=== PATIENT | female | born 1980 | race African-American/Black ===

== ENCOUNTER 2021-03-13 02:55 | Emergency (ER) | payer MEDICAID ==
[~2021-03-13] VITALS: Ht 149.9 cm; Wt 61.2 kg
[2021-03-13 02:59] VITALS: BP 151/90
--- NOTE | 2021-03-13 03:00 | NUR ---
TO BED VIA WHEELCHAIR
--- NOTE | 2021-03-13 03:11 | NUR ---
Dr. Pearson examining patient.
[2021-03-13] MEDS ORDERED: MORPHINE SULFATE 4 MG/ML SYR IVP STA (03:13)
[2021-03-13] MEDS ORDERED: NACL 0.9% 1,000 ML IV STA (03:13)
[2021-03-13 03:28] LABS: BASOPHILS % (AUTO) 0.4 % (0.0-2.0); EOSINOPHILS # (AUTO) 0.1 K/uL (0-0.4); EOSINOPHILS % (AUTO) 1.1 % (0.0-4.0); HEMATOCRIT 35.2 % (36-48); HEMOGLOBIN 11.3 g/dL (12.0-16.0); LYMPHOCYTES # (AUTO) 2.7 K/uL (2.5-16.5); LYMPHOCYTES % (AUTO) 27.5 % (20.5-51.1); MEAN CORPUSCULAR HEMOGLOBIN 23 pg (27-31); MEAN CORPUSCULAR HGB CONC 32 g/dL (33-37); MEAN CORPUSCULAR VOLUME 71.2 fL (80-94); MONOCYTES # (AUTO) 0.5 K/uL (0.8-1.0); NEUTROPHILS # (AUTO) 6.5 K/uL (1.8-7.7); PLATELET COUNT (AUTO) 288 K/uL (140-450); RED BLOOD CELL COUNT(AUTO) 4.94 MIL/uL (4.20-5.40); RED CELL DISTRIBUTION WIDTH 14.9 % (11.6-13.7); WHITE BLOOD COUNT (AUTO) 9.8 K/uL (4.8-10.8)
--- NOTE | 2021-03-13 03:42 | NUR ---
41 YO/F BIB SELF W C/O R LOWER ABDOMINAL PAIN AND R FLANK PAIN X1 DAY WORSENING YESTEDAY AT 2000 CONSTANT THROBBING W EPISODES OF "SHARP BURSTS." PT ALSO REPORTS X2 EPISODES OF VOMIT, NO BLOOD IN VOMIT. PATIENT DENIES ANY FEVER, N/D. PATIENT REPORT URINARY FREQUENCY, DENIES ANY OTHER URINARY PROBLEMS. BOWEL SOUNDS PRESENT, ABDOMEN SOFT NON-TENDER. PT REPORTS TAKING NAPROXEN (UNKNOWN DOSAGE) AT 2200. PATIENT LAYING IN BED LOCKED IN LOWEST POSITION W X1 SIDERAIL UP. BREATHING EVEN AND UNLABORED. VSS. NAD NOTED, WILL CONTINUE TO MONITOR. PMH: 3 C-SECTIONS, UTERINE FIBROIDS REMOVAL, GALL BLADDER REMOVAL ALLERGIES: IODINE, SULFA, ERYTHROMYCIN
[2021-03-13 03:52] LABS: ALBUMIN 4.2 g/dL (3.4-5.0); ANION GAP 15.6 (8-16); CARBON DIOXIDE 22.3 mmol/L (21-32); CREATININE 0.7 mg/dL (0.6-1.3); POTASSIUM 3.9 mmol/L (3.5-5.1); TOTAL BILIRUBIN 0.3 mg/dL (0.0-1.0)
[2021-03-13] MEDS ORDERED: diphenhydrAMINE 50 MG/ML VIAL IVP ONE (04:15)
--- NOTE | 2021-03-13 04:36 | NUR ---
PT RETURNED FROM CT. RE-CONNECTED TO MONITOR. PT REPORTS ITCHING, BENADRYL ADMNISTERED. DENIES SOB. NAD NOTED, WILL CONTINUE TO MONITOR.
--- NOTE | 2021-03-13 05:27 | NUR ---
PATIENT REPORT PAIN IS GONE AND FEELS BETTER. VSS
[2021-03-13] MEDS ORDERED: DOXYCYCLINE 100 MG CAP PO STA (05:29)
[2021-03-13] MEDS ORDERED: cefTRIAXone 500 MG in LIDOCAINE MPF 1% 1 ML IM ONE (05:30)
--- NOTE | 2021-03-13 05:32 | NUR ---
Female Boiler Operator Helper accompanied female patient for Pelvic Exam.
[2021-03-13] MEDS ORDERED: cefTRIAXone 500 MG VIAL ONE (05:47)
[2021-03-13] MEDS ORDERED: LIDOCAINE MPF 1% 5 ML ONE (05:48)
--- NOTE | 2021-03-13 06:43 | NUR ---
Dr. Talamantes examining patient.
[2021-03-13] MEDS ORDERED: ONDANSETRON 4 MG/2 ML VIAL IVP ONE (06:50)
--- NOTE | 2021-03-13 06:53 | NUR ---
Ultrasound at bedside.
[2021-03-13 06:58] LABS: APPEARANCE,URINE CLEAR (CLEAR); BILIRUBIN,URINE NEGATIVE (NEGATIVE); BLOOD, URINE TRACE-I (NEGATIVE); COLOR,URINE YELLOW (YELLOW); LEUKOCYTE ESTERASE ,URINE NEGATIVE (NEGATIVE); NITRITE, URINE NEGATIVE (NEGATIVE); UGLUCOSE NEGATIVE (NEGATIVE)
--- NOTE | 2021-03-13 07:10 | NUR ---
pt presents aox4, gcs15. cc: rlq abd pain, 4/10 right now tolerble, pending us results. no distress. no nvd. denies blood in urine/stool/vag bleed. pt on cell phone laughing/conversating.
--- NOTE | 2021-03-13 07:12 | NUR ---
Pt report given to DARIUSZ CASANOVA. Transfer of PT care at this time.
[2021-03-13 07:18] LABS: RBC,URINE 0-5 /HPF (0-5); WBC,URINE 0-5 /HPF (0-5)
[2021-03-13 07:53] VITALS: BP 127/67
[2021-03-13] MEDS ORDERED: METR500T1 PO (08:56)
[2021-03-13] MEDS ORDERED: DOXY-690 PO (08:56)
[2021-03-13] MEDS ORDERED: ACET-8386 PO (08:56)
[2021-03-13] MEDS ORDERED: NAPR-54 PO (08:56)
--- NOTE | 2021-03-13 09:20 | NUR ---
Patient discharged with v/s stable. Written and verbal after care instructions given and explained. Patient alert, oriented and verbalized understanding of instructions. Ambulatory with steady gait. All questions addressed prior to discharge. ID band removed. Patient advised to follow up with PMD. Rx of norco, flagyl,naprosyn, vibramycin given. Patient educated on indication of medication including possible reaction and side effects. Opportunity to ask questions provided and answered.
[2021-03-13] MEDS ORDERED: TRAM50TA1 PO ×2 (19:10→19:12)
[2021-03-13] MEDS ORDERED: ONDA-24 SL (19:13)
[2021-03-14] MEDS ORDERED: POLY17PD46 PO (12:31)
[2021-03-14] MEDS ORDERED: METO10TA10 PO (12:31)
[2021-03-14] MEDS ORDERED: SIME80TA22 PO (12:31)
[2021-03-14] MEDS ORDERED: PERI PO (12:31)
[2021-03-14] MEDS ORDERED: ACET-1182 PO (12:31)
== END 2021-03-13 09:20 | disposition home or self-care (01) ==
LOC: MED 02:55
DX: R10.2 Pelvic and perineal pain (principal); R11.10 Vomiting, unspecified; Z90.49 Acquired absence of other specified parts of digestive tract
CPT/HCPCS: 36415; 74177; 76830; 80053; 81001; 81025; 83690; 85025; 87210; 96361; 96372; 96374; 96375; 99285; J0696; J1200; J2001; J2270; J2405; Q0092; Q9967; 87491

== ENCOUNTER 2021-03-13 17:35 | Emergency (ER) | payer MEDICAID ==
[~2021-03-13 17:35] MED LIST: ACET-8386 PO; DOXY-690 PO; METR500T1 PO; NAPR-54 PO
--- NOTE | 2021-03-13 17:54 | NUR ---
PT WAS TAKEN BACK TO TRIAGE ROOM. ASKED PT TO KEEP ARM STILL FOR BLOOD PRESSURE, PT STATED "I WILL JUST GO SOMEWHERE ELSE, YOU GUYS DONT KNOW HOW TO DEAL WITH PEOPLE." PT WALKED FROM WHEELCHAIR AND THREW EMESIS BAG ON FLOOR. LWBS AT THIS TIME.
[2021-03-13] MEDS ORDERED: TRAM50TA1 PO ×2 (19:10→19:12)
[2021-03-13] MEDS ORDERED: ONDA-24 SL (19:13)
[2021-03-14] MEDS ORDERED: METO10TA10 PO (12:31)
[2021-03-14] MEDS ORDERED: SIME80TA22 PO (12:31)
[2021-03-14] MEDS ORDERED: ACET-1182 PO (12:31)
[2021-03-14] MEDS ORDERED: PERI PO (12:31)
[2021-03-14] MEDS ORDERED: POLY17PD46 PO (12:31)
== END 2021-03-13 17:54 | disposition left against medical advice (07) ==
LOC: MED 17:35
DX: Z53.21 Procedure and treatment not carried out due to patient leaving prior to being seen by health care provider (principal)

== ENCOUNTER 2021-03-13 18:25 | Observation (INO) | payer MEDICAID, SELFPAY ==
[~2021-03-13] VITALS: Ht 149.9 cm; Wt 61.2 kg
[2021-03-13 18:44] VITALS: BP 168/78
--- NOTE | 2021-03-13 18:50 | NUR ---
Patient ambulated to bed 05 with steady/even gait.
--- NOTE | 2021-03-13 18:50 | NUR ---
41 Y/O F BIB MOTHER FROM HOME, PT WAS HERE EARLIER AND IS HERE FOR SAME C/O. STATES SHE IS HAVING INTENSE BACK PAIN THAT RADIATES FROM R LOWER SIDE TO LOWER BACK 10/10 SHARP/CONSTANT. PT ALSO REPORTS CHILLS, URINARY FREQUENCY, AND C/O N&V X 4 EPISODES '"CLEAR" TODAY. PATIENT DENIES DYSURIA, CHEST PAIN, ABDOMINAL PAIN. ABD SOFT/NON-TENDER. DENIES SICK HOUSEHOLD MEMBERS. STATES EARLIER WAS DISCHARGED WITH NAPROXEN WITHOUT RELIEF; STATES LAST DOSE NAPROXEN 2 HOURS AGO. BED LOCKED IN LOWEST POSITION, SIDE RAILS X 1, CALL LIGHT IN REACH. LMP: 2020. PMH: 3 C-SECTIONS, UTERINE FIBROIDS REMOVAL, GALL BLADDER REMOVAL ALLERGY: IODINE, ERYTHROMYCIN, SULFA MED: DENIES
[2021-03-13] MEDS ORDERED: KETOROLAC 30 MG/ML VIAL IVP ONE (18:55)
[2021-03-13] MEDS ORDERED: NACL 0.9% 1,000 ML IV ONE (18:55)
--- NOTE | 2021-03-13 19:07 | NUR ---
Dr. Berry is evaluating patient at bedside
--- NOTE | 2021-03-13 19:07 | NUR ---
Dr. Berry states to hold CT, IV, UA +give Toradol IM.
[2021-03-13] MEDS ORDERED: TRAM50TA1 PO ×2 (19:10→19:12)
--- NOTE | 2021-03-13 19:10 | NUR ---
Report and transfer of care given to DARIUSZ Benson
--- NOTE | 2021-03-13 19:10 | NUR ---
REPORT RECEIVED FROM DARIUSZ CALIXTO FOR CONTINUITY OF PT CARE AT THIS TIME.
[2021-03-13] MEDS ORDERED: ONDA-24 SL (19:13)
--- NOTE | 2021-03-13 19:50 | NUR ---
PT LAYING IN BED LOCKED IN LOWEST POSITION W X1 SIDERAIL UP. PT REPORTS PAIN SLIGHTLY IMPROVED TO 5/10. VSS. BREATHING EVEN AND UNLABORED. NAD NOTED, WILL CONTINUE TO MONITOR. ERMD AT BEDSIDE FOR CONTINUITY OF PT CARE.
--- NOTE | 2021-03-13 20:26 | NUR ---
PER DR. LAURIE TORRES. TO CANCEL CT, LABS, UA, ONLY INSERT IV FOR PAIN MEDICATIONS.
--- NOTE | 2021-03-13 20:30 | NUR ---
SULMA SAMPLE COLLECTED FROM PT NARES AND HANDED TO MANAGER RESOURCE.
--- NOTE | 2021-03-13 21:35 | NUR ---
PT AMBULATED TO BATHROOM W STEADY GAIT.
--- NOTE | 2021-03-13 21:42 | NUR ---
PT REPORTING 7/10 TEMPORAL HEADACHE W LIGHT SENSITIVITY AND 8/10 PELVIC PAIN. ERMD MADE AWARE.
[2021-03-13] MEDS ORDERED: MORPHINE SULFATE 4 MG/ML SYR IVP ONE (21:50)
--- NOTE | 2021-03-13 22:14 | NUR ---
PROVIDED PT W CRACKERS AND APPLE JUICE.
[2021-03-13] MEDS ORDERED: ONDANSETRON 4 MG/2 ML VIAL IVP PRN (23:00)
[2021-03-13] MEDS ORDERED: POTASSIUM CHLORIDE 10 MEQ TABER PO PRN (23:00)
[2021-03-13] MEDS ORDERED: ACETAMINOPHEN 325 MG TAB PO PRN (23:00)
[2021-03-13] MEDS ORDERED: KCL 20 MEQ/WATER INJ PREMIX 200 ML IV PRN (23:00)
[2021-03-13] MEDS ORDERED: MAGNESIUM OXIDE 400 MG TAB PO PRN (23:00)
[2021-03-13] MEDS ORDERED: MAG SULF 2000 MG/WATER PREMIX 50 ML IV PRN (23:00)
[2021-03-13] MEDS ORDERED: HYDROcodone/APAP 5/325 MG 1 TAB TAB PO PRN (23:00)
[2021-03-13] MEDS ORDERED: IBUPROFEN 400 MG TAB PO PRN (23:00)
[2021-03-13] MEDS ORDERED: MORPHINE SULFATE 2 MG/ML SYR IVP PRN (23:05)
--- NOTE | 2021-03-13 23:35 | NUR ---
CALLED REPORT TO DARIUSZ LITTLEJOHN FOR TRANSFER OF PT CARE. PER DARIUSZ LITTLEJOHN UNAVAILABLE TO TAKE REPORT AT THIS TIME AND WILL CALL ME BACK . UNKNOWN TIME OF CALL BACK FOR REPORT.
--- NOTE | 2021-03-14 00:10 | NUR ---
PT APPEARS TO BE RESTING W EYES CLOSED, SUPINE. BREATHING EVEN AND UNLABORED. NAD NOTED, WILL CONTINUE TO MONITOR. VSS ON MONITOR.
--- NOTE | 2021-03-14 00:20 | NUR ---
CALLED [phone] FOR REPORT, NO ANSWER. WILL TRY AGAIN.
--- NOTE | 2021-03-14 00:31 | NUR ---
REPORT CALLED TO DARIUSZ LITTLEJOHN FOR TRANSFER OF PT CARE AT THIS TIME.
--- NOTE | 2021-03-14 00:34 | NUR ---
CALLED ED AND RECEIVED REPORT FROM ANGELICA ARZOLA. WILL AWAIT PATIENT ARRIVAL.
--- NOTE | 2021-03-14 00:46 | NUR ---
Patient will be admitted to care of . Admited to MED/SURG. Will go to room 119-B. Belongings list completed. Report to DARIUSZ LITTLEJOHN.
--- NOTE | 2021-03-14 01:00 | NUR ---
RECEIVED REPORT AND PT FROM ED ANGELICA ARZOLA FOR ADMIT TO [facility] ROOM 119B. PT ARRIVED AAOX4. NO APPARENT S/S OF ACUTE DISTRESS. BREATHING EVEN AND UNLABORED ON RA WITH O2 SAT OF 99%. NO C/O CP OR SOB. R AC 20G IVL, INTACT/PATENT. POC AND WHITE COMMUNICATION BOARD UPDATED. BED IN LOW/LOCKED POSITION. CALL LIGHT WITHIN REACH. PT ENCOURAGED TO CALL FOR ANY NEEDS/ASSISTANCE. WILL CONTINUE TO MONITOR.
[2021-03-14 01:26] VITALS: BP 122/71
[2021-03-14 04:00] VITALS: BP 122/76
--- NOTE | 2021-03-14 07:18 | NUR ---
REPORT GIVEN TO NERISSA ARZOLA FOR CONTINUITY OF CARE. PT SITTING UP AAOX4. NO APPARENT S/S OF ACUTE DISTRESS. BREATHING EVEN AND UNLABORED. BED IN LOW/LOCKED POSITION. CALL LIGHT WITHIN REACH. ALL NEEDS MET AT THIS TIME.
--- NOTE | 2021-03-14 07:20 | NUR ---
RECEIVED REPORT FROM TRANSPORT CONDUCTOR NURSE FOR CONTINUITY OF CARE. PATIENT STABLE. NO S/S OF DISTRESS. BREATHING SYMMETRICAL. IV INTACT, DRY, SALINE LOCKED. CALL LIGHT IN REACH. ALL SAFETY MEASURES IN PLACE.
[2021-03-14 07:31] LABS: BASOPHILS % (AUTO) 0.3 % (0.0-2.0); EOSINOPHILS # (AUTO) 0.1 K/uL (0-0.4); EOSINOPHILS % (AUTO) 1.1 % (0.0-4.0); HEMATOCRIT 32.2 % (36-48); HEMOGLOBIN 10.3 g/dL (12.0-16.0); LYMPHOCYTES # (AUTO) 2.6 K/uL (2.5-16.5); LYMPHOCYTES % (AUTO) 32.1 % (20.5-51.1); MEAN CORPUSCULAR HEMOGLOBIN 23 pg (27-31); MEAN CORPUSCULAR HGB CONC 32 g/dL (33-37); MEAN CORPUSCULAR VOLUME 72.3 fL (80-94); MONOCYTES # (AUTO) 0.6 K/uL (0.8-1.0); MONOCYTES % (AUTO) 7.1 % (1.7-9.3); NEUTROPHILS # (AUTO) 4.9 K/uL (1.8-7.7); NEUTROPHILS % (AUTO) 59.4 % (42.2-75.2); PLATELET COUNT (AUTO) 258 K/uL (140-450); RED BLOOD CELL COUNT(AUTO) 4.45 MIL/uL (4.20-5.40); RED CELL DISTRIBUTION WIDTH 15.1 % (11.6-13.7); WHITE BLOOD COUNT (AUTO) 8.2 K/uL (4.8-10.8)
[2021-03-14 07:49] LABS: ALBUMIN 3.4 g/dL (3.4-5.0); ANION GAP 13.5 (8-16); CARBON DIOXIDE 25.5 mmol/L (21-32); CHOL/HDL RATIO 2.6 (1-4.5); CREATININE 0.7 mg/dL (0.6-1.3); MAGNESIUM 1.7 mg/dL (1.8-2.4); TOTAL BILIRUBIN 0.4 mg/dL (0.0-1.0)
[2021-03-14 08:00] VITALS: BP 126/77
--- NOTE | 2021-03-14 08:49 | NUR ---
PATIENT HAS BEEN SCREENED AND CATEGORIZED HIGH NUTRITION RISK. PATIENT WILL BE SEEN WITHIN 1-2 DAYS OF ADMISSION. 03/14/21-03/15/21 [facility] CONSULT AND REFERRAL RECEIVED FOR UNINTENTIONAL WEIGHT LOSS CLAUDIA AMBROSIO RD
--- NOTE | 2021-03-14 10:21 | NUR ---
SPOKE TO PT FOR UPDATES. DISCUSSED PLAN OF CARE AND DISCHARGE WITH PATIENT. PT VERBALIZED UNDERSTANDING. CALL LIGHT IN REACH. ALL SAFETY MEASURES IN PLACE
[2021-03-14] MEDS ORDERED: DOCUSATE SOD/SENNA 50/8.6 MG 1 TAB PO PRN (11:05)
[2021-03-14] MEDS ORDERED: POLYETHYLENE GLYCOL 17 GM/PKT PO SCH (12:15)
--- NOTE | 2021-03-14 12:22 | NUR ---
PT COMPLAINED OF CONSTIPATION. MEDICATED PER MD ORDERS. EDUCATED PT ON MEDICATION GIVEN. PT VERBALIZED UNDERSTANDING. WILL REASSESS PATIENT. NO S/S OF DISTRESS. CALL LIGHT IN REACH. ALL SAFETY MEASURES IN PLACE.
[2021-03-14] MEDS ORDERED: METO10TA10 PO (12:31)
[2021-03-14] MEDS ORDERED: POLY17PD46 PO (12:31)
[2021-03-14] MEDS ORDERED: PERI PO (12:31)
[2021-03-14] MEDS ORDERED: SIME80TA22 PO (12:31)
[2021-03-14] MEDS ORDERED: ACET-1182 PO (12:31)
--- NOTE | 2021-03-14 14:01 | NUR ---
03/14/21 RD INITIAL ASSESSMENT COMPLETED PLEASE REFER TO NUTRITION ASSESSMENT UNDER CARE ACTIVITY FOR ESTIMATED NUTRITIONAL NEEDS. 1. CONTINUE REGULAR DIET TOLERATED 2. RECOMMEND ENSURE CHOCOLATE 1X DAILY -THIS WILL PROVIDE 350 KCALS AND 11GM PROTEIN. 3. RD TO FOLLOW-UP 2-3 DAYS, HIGH RISK REVIEWED BY CLAUDIA AMBROSIO RD
--- NOTE | 2021-03-14 14:30 | NUR ---
PATIENT DISCHARGED. EDUCATED PATIENT ON DC INSTRUCTIONS, MEDICATION LIST, AND FOLLOW-UP INSTRUCTIONS. PT VERBALIZED UNDERSTANDING. IV REMOVED, CANULA INTACT. ID BANDS REMOVED. PT WHEELED OUT TO VEHICLE.
[2021-03-15] MEDS ORDERED: POLYETHYLENE GLYCOL 17 GM/PKT PO SCH (09:00)
== END 2021-03-14 15:50 | disposition home or self-care (01) ==
LOC: MED 18:25 → MMU 23:03 → MTU 23:51
PROVIDERS: ADMIT Internal Medicine; ATTEND Internal Medicine
DX: K59.09 Other constipation (principal); Z20.822 Contact with and (suspected) exposure to COVID-19; N83.201 Unspecified ovarian cyst, right side; D25.9 Leiomyoma of uterus, unspecified; Z79.899 Other long term (current) drug therapy
CPT/HCPCS: 36415; 80053; 80061; 83036; 83735; 85025; 87081; 87426; 96374; 96375; 96376; 99284; G0378; J1885; J2270

== ENCOUNTER 2022-01-09 01:05 | Emergency (ER) | payer OTHER, MEDICAID ==
[~2022-01-09] VITALS: Ht 149.9 cm; Wt 58.5 kg
[~2022-01-09 01:05] MED LIST changes: +ACET-1182 PO; +METO10TA10 PO; +ONDA-188 SL; +PERI PO; +POLY17PD46 PO; +SIME80TA22 PO; +TRAM50TA1 PO
[2022-01-09 01:22] VITALS: BP 95/62
--- NOTE | 2022-01-09 01:30 | NUR ---
TO LOBBY FOLLOWING TRIAGE. UA OBTAINED
--- NOTE | 2022-01-09 01:34 | NUR ---
EXAM PER DR DYSON
[2022-01-09 02:08] LABS: BASOPHILS % (AUTO) 0.6 % (0.0-2.0); EOSINOPHILS % (AUTO) 0.1 % (0.0-4.0); HEMATOCRIT 33.4 % (36-48); HEMOGLOBIN 10.5 g/dL (12.0-16.0); LYMPHOCYTES # (AUTO) 0.8 K/uL (2.5-16.5); LYMPHOCYTES % (AUTO) 19.5 % (20.5-51.1); MEAN CORPUSCULAR HEMOGLOBIN 21 pg (27-31); MEAN CORPUSCULAR HGB CONC 31 g/dL (33-37); MEAN CORPUSCULAR VOLUME 66.1 fL (80-94); MONOCYTES # (AUTO) 0.3 K/uL (0.8-1.0); MONOCYTES % (AUTO) 8.7 % (1.7-9.3); NEUTROPHILS # (AUTO) 2.8 K/uL (1.8-7.7); NEUTROPHILS % (AUTO) 71.1 % (42.2-75.2); PLATELET COUNT (AUTO) 243 K/uL (140-450); RED BLOOD CELL COUNT(AUTO) 5.05 MIL/uL (4.20-5.40); RED CELL DISTRIBUTION WIDTH 17.1 % (11.6-13.7)
[2022-01-09 02:23] LABS: ALBUMIN 3.8 g/dL (3.4-5.0); ANION GAP 14.6 (8-16); CARBON DIOXIDE 24.2 mmol/L (21-32); CREATININE 0.9 mg/dL (0.6-1.3); POTASSIUM 3.8 mmol/L (3.5-5.1); TOTAL BILIRUBIN 0.3 mg/dL (0.0-1.0)
--- NOTE | 2022-01-09 02:48 | NUR ---
PT TAKEN TO BED 2
[2022-01-09] MEDS ORDERED: KETOROLAC 30 MG/ML VIAL ONE (03:07)
[2022-01-09] MEDS ORDERED: ONDANSETRON 4 MG/2 ML VIAL ONE (03:07)
[2022-01-09] MEDS: ONDANSETRON 4 MG/2 ML VIAL IVP ONE (03:12)
[2022-01-09] MEDS: KETOROLAC 30 MG/ML VIAL IVP ONE (03:12)
[2022-01-09] MEDS: NACL 0.9% 1,000 ML IV ONE (03:14)
--- NOTE | 2022-01-09 03:19 | NUR ---
41 Y/O F BIB SELF C/O RLQ PAIN 10/10 RADIATING TO RIGHT FLANK. "I HAD AN ENDOSCOPY AND COLONOSCOPY ON THE ". DENIES URINARY COMPLAINTS. "I HAVE REALLY PAINFUL GAS". ALLERGIES: IODINE NKPMH
--- NOTE | 2022-01-09 07:18 | NUR ---
GAVE REPORT TO STEPHANE CARRILLO
--- NOTE | 2022-01-09 07:19 | NUR ---
Report recieved from JEREMY Durbin for transfer of care.
--- NOTE | 2022-01-09 09:25 | NUR ---
Patient was offered a menstrual pad for restroom use.
--- NOTE | 2022-01-09 10:31 | NUR ---
Dr. Antunez re-evaluating patient at bedside.
[2022-01-09] MEDS ORDERED: NAPR-1704 PO (10:33)
[2022-01-09 10:47] VITALS: BP 121/70
--- NOTE | 2022-01-09 10:47 | NUR ---
Patient discharged with v/s stable. Written and verbal after care instructions given. Patient alert, oriented and verbalized understanding of instructions. Ambulatory with steady gait. All questions addressed prior to discharge. ID band removed. Patient advised to follow up with PMD. Rx of Naproxen given. Opportunity to ask questions provided and answered.
--- NOTE | 2022-01-09 11:00 | NUR ---
The patient's care was reviewed and supervised by Sveta Kraft RN.
== END 2022-01-09 10:47 | disposition home or self-care (01) ==
LOC: MED 01:05
DX: R10.9 Unspecified abdominal pain (principal); Z79.899 Other long term (current) drug therapy; Z88.8 Allergy status to other drugs, medicaments and biological substances
CPT/HCPCS: 36415; 74176; 80053; 81002; 81025; 85025; 96361; 96374; 96375; 99284; J1885; J2405; J7030